=== PATIENT | female | born 1980 | race Caucasian/White ===

== ENCOUNTER 2019-01-08 09:10 | Emergency (ER) | payer MEDICAID ==
--- NOTE | 2019-01-08 10:08 | EDPHY ---
General Time Seen by Provider: 01/08/19 09:34 Narrative: CLINICAL IMPRESSION: Right foot pain, plantar fasciitis ASSESSMENT/PLAN: 38-year-old female presents to the emergency department with 3 weeks of atraumatic right foot pain, worsened by standing, worsened 1st thing in the morning. Neurovascular exam intact, no ankle long, lower leg or knee pain. X- rays negative for acute fracture and bony abnormality. Exam consistent with plantar fasciitis and possible Lisfranc strain. Patient was placed in a postop walking shoe. She is requesting anxiety medication as she has run out and does not have a primary care follow-up until next week. I encouraged her to contact her primary care doctor in [place] to see if they can call a prescription in locally. She was given a prescription for 4 tablets today. Orthopedic referral given, warning signs return to ED sooner discussed and discharge. DIFFERENTIAL DX: Differential includes but not limited to acute fracture, strain/sprain, joint dislocation, soft tissue contusion ED PROCEDURES: Procedure: Splint placement. A postop shoe splint was applied to right foot by organic section technical lead, supervised by myself. After application of the splint I returned and re-examined the patient. The splint was adequately immobilizing the joint and distal to the splint the patient's circulation and sensation was intact. ED COURSE: X-rays reviewed by myself and with the patient. No obvious fracture or deformity identified. CHIEF COMPLAINT: Right foot pain, anxiety HPI: 38-year-old female presents to the emergency department with 3 weeks of atraumatic right foot pain. This is exacerbated by standing 1st thing in the morning and after she has been standing all day. Patient works at [employer]. No reported injury or trauma. She has an old fracture to the right 3rd toe when she was 18. No numbness or loss of sensation. No rash. No ankle or lower leg pain. She also reports she has been out of her anxiety medication for 2 weeks and is requesting a little bit more. She has an appointment with [facility] next week. She was previously treated by [facility] in [place]. PAST MEDICAL HISTORY: Anxiety Pertinent Past Surgical History: None reported Social History: Works a [employer], smoker REVIEW OF SYSTEMS: All other systems negative Constitutional: No fever, no chills Musculoskeletal: No deformity, + joint pain, positive for pain Skin: No rashes, color change or open wounds. Neurological: No sensory loss or weakness. PHYSICAL EXAM: General Appearance: Alert, oriented, appropriate for age, cooperative, sitting comfortably on the bed in no obvious distress well hydrated, non-toxic appearing , VSS, no hypoxia. Neurological: Alert and oriented x 3, normal sensation and strength of extremities Skin: Warm, dry, no rashes, no nodules on palpation. Musculoskeletal: Reproducible pain along the 2nd and 3rd mid dorsal metatarsals of the right foot. Reproducible pain along the plantar fascia. No obvious swelling or deformity. Distal neurovascular exam and pulses intact. No ankle or lower leg pain. No rash. MEDICAL DECISION MAKING: Patient was seen independently. Secondary supervising physician at time of evaluation was Dr. Freeman. Diagnosis: Right foot pain, plantar fasciitis. New, requires workup Summary: See assessment and plan for summary of ED visit Independent visualization of images, tracing, or specimens yes. Patient Progress: Stable for discharge. - Diagnostics Imaging Results: Imaging Impressions Foot X-Ray 01/08/19 09:16 Impression: 1. Negative. No acute process. 2. Old deformities of the third metatarsal and base proximal phalanx third toe. - History Smoking Status: Current every day smoker - Objective Vital Signs: Initial Vital Signs Temperature (C) 36.8 C 01/08/19 09:12 Heart Rate 75 01/08/19 09:12 Respiratory Rate 16 01/08/19 09:12 Blood Pressure 134/68 H 01/08/19 09:12 O2 Sat (%) 96 01/08/19 09:12 O2 Delivery Mode Room Air Allergies/Adverse Reactions: No Known Allergies Allergy (Unverified 01/08/19 09:15) Home Medications: Medication Instructions Recorded Temazepam 15 mg PO DAILY #4 capsule 01/08/19 Departure - Departure Disposition: Home, Routine, Self-Care Clinical Impression: Plantar fasciitis of right foot, Foot pain, right, Situational anxiety Condition: Good Instructions: Plantar Fasciitis (ED), Anxiety (ED) Additional Instructions: DISCHARGE INSTRUCTIONS FROM YOUR DOCTOR Thank you for visiting our emergency department today. You were treated by a physician animal assistant today and your case was reviewed with our ED Attending physician. Please keep in mind that discharge from the emergency department does not mean that there is nothing wrong - it simply means that we have not identified an emergency condition that requires further evaluation or treatment in the hospital. You should always plan to follow up with primary care for re- evaluation of your condition in the next 2-3 days. If you have been referred to a specialist, please call as soon as possible (today or tomorrow) to schedule your follow up appointment at the appropriate time. X-RAYS OF HER FOOT SHOW NO EVIDENCE OF FRACTURE OR BONY ABNORMALITY. A POSTOP SHOE WAS PROVIDED FOR COMFORT AND ORTHOPEDIC REFERRAL WAS ALSO GIVEN. PLEASE CALL THEM FOR FOLLOW-UP APPOINTMENT. PLEASE CONTACT YOUR [facility] DOCTOR IN [place] TO ASK ABOUT A NEW PRESCRIPTION FOR HER ANXIETY MEDICATION. WE ARE ONLY ABLE TO GIVE YOU A COUPLE TABLETS. PLEASE KEEP HER APPOINTMENT WITH [facility]. RETURN TO THE EMERGENCY DEPARTMENT SOONER FOR WORSENING FOOT PAIN, SWELLING, RASH, LOSS OF SENSATION TO THE FOOT OR TOES, FEVER OR CHILLS, OR ANY OTHER CONCERNS. People present with illnesses and injuries in different ways, and it is always possible that we have missed something. You may always return for re-evaluation if symptoms worsen or if they are not improving or if you develop new/different symptoms. Again, thank you for choosing our emergency department. We hope that you feel better. Referrals: NONE *PRIMARY CARE P,. [Primary Care Provider] - As per Instructions [facility],. [Clinic] - As per Instructions Amos Giang MD [Medical Doctor] - 2-3 days without fail Prescriptions: Temazepam 15 mg PO DAILY #4 capsule
[2019-01-08 10:21] VITALS: BP 132/77
== END 2019-01-08 10:20 | disposition home or self-care (01) ==
DX: M72.2 Plantar fascial fibromatosis (principal); F41.1 Generalized anxiety disorder
CPT/HCPCS: L4386

== ENCOUNTER 2019-01-14 11:40 | Emergency (ER) | payer MEDICAID ==
[2019-01-14 11:45] VITALS: BP 119/75
--- NOTE | 2019-01-14 13:07 | EDPHY ---
General - History Smoking Status: Current every day smoker Time Seen by Provider: 01/14/19 12:55 Narrative: CLINICAL IMPRESSION: Medication refill ASSESSMENT/PLAN: 38-year-old female with a reported past medical history of depression and anxiety presents to the emergency department requesting a refill of her clonazepam and amitriptyline. Patient states she has been out for 2 days. She gets these filled in [place] and has not attempted to contact that facility for refills. She states she has an appointment with [facility] at 2:30 p.m. On which is 2 days from now. She has no nausea, vomiting , tremors, or signs of acute withdrawal. She was given 2 days supply of amitriptyline and clonazepam. I explained that further refills of her chronic medications need to come from a primary care provider. Warning signs return to ED sooner discussed and discharge. CHIEF COMPLAINT: I need medications refilled HPI: 38-year-old female with past medical history of depression and anxiety. Patient reports to the ER saying that she ran out of her medications 2 days ago. She gets these filled at the [facility] near [place]. She has not contacted this clinic for refills. She states she is moving to our area. She states she has an appoint with [facility] in 2 days at 2:30 p.m.. She has no physical complaints at this time. PAST MEDICAL HISTORY: Depression and anxiety See triage summary and nurse notes for addition applicable history REVIEW OF SYSTEMS: A full 10 point review of systems was negative except for those mentioned in HPI. PHYSICAL EXAM: General Appearance: Alert, oriented, appropriate, cooperative, NAD, well hydrated, non-toxic appearing, VSS, no hypoxia. Respiratory: There are no retractions, lungs are clear to auscultation. Cardiac: Regular rate and rhythm, no murmurs or gallops. MEDICAL DECISION MAKING: Patient was seen independently. Secondary supervising physician at time of evaluation was: Dr. Alexis . Diagnosis: Medication refill. New, requires workup Summary: See Assessment and Plan for summary of ED visit Patient Progress: Stable for discharge. (Dileep Rock) Medical Decision Making: I did not see this patient while she was in the emergency department. However her care was discussed with the PA while the patient was in the department. I agree with treatment plan and management (Dawson Alexis) - Objective Vital Signs: Initial Vital Signs Temperature (C) 36.6 C 01/14/19 11:43 Heart Rate 88 01/14/19 11:43 Respiratory Rate 18 01/14/19 11:43 Blood Pressure 119/75 01/14/19 11:43 O2 Sat (%) 96 01/14/19 11:43 O2 Delivery Mode Room Air Allergies/Adverse Reactions: No Known Allergies Allergy (Verified 01/14/19 11:42) Home Medications: Medication Instructions Recorded Amitriptyline HCl 01/14/19 Amitriptyline HCl [Elavil 100 MG 100 mg PO HS #2 tab 01/14/19 (*)] clonazePAM [CLONAZEPAM] 0.5 mg PO Q8 PRN #4 tab.rapdis 01/14/19 Departure - Departure Disposition: Home, Routine, Self-Care Clinical Impression: Medication refill Condition: Good Instructions: Medicine Refill (ED) Additional Instructions: DISCHARGE INSTRUCTIONS FROM YOUR DOCTOR Thank you for visiting our emergency department today. You were treated by a physician assistant foreman today and your case was reviewed with our ED Attending physician. Please keep in mind that discharge from the emergency department does not mean that there is nothing wrong - it simply means that we have not identified an emergency condition that requires further evaluation or treatment in the hospital. You should always plan to follow up with primary care for re- evaluation of your condition in the next 2-3 days. If you have been referred to a specialist, please call as soon as possible (today or tomorrow) to schedule your follow up appointment at the appropriate time. WE ARE ONLY ABLE TO GIVE YOU 2 DAYS OF HER MEDICATIONS. ADDITIONAL REFILLS NEED TO COME FROM [facility]. KEEP HER APPOINTMENT ON SUNDAY AT 2:30 pm ON SUNDAY.. TAKE MEDICATION ONLY PRESCRIBED. RETURN TO THE EMERGENCY DEPARTMENT FOR ANY OTHER CONCERNS. People present with illnesses and injuries in different ways, and it is always possible that we have missed something. You may always return for re-evaluation if symptoms worsen or if they are not improving or if you develop new/different symptoms. Again, thank you for choosing our emergency department. We hope that you feel better. Referrals: NONE *PRIMARY CARE P,. [Primary Care Provider] - As per Instructions [facility],. [Clinic] - As per Instructions Prescriptions: Amitriptyline HCl [Elavil 100 MG (*)] 100 mg PO HS #2 tab clonazePAM [CLONAZEPAM] 0.5 mg PO Q8 PRN #4 tab.rapdis PRN Reason: Anxiety
== END 2019-01-14 13:13 | disposition home or self-care (01) ==
DX: Z76.0 Encounter for issue of repeat prescription (principal); F41.8 Other specified anxiety disorders; Z79.899 Other long term (current) drug therapy